=== PATIENT | female | born 1960 | race Caucasian/White ===

== ENCOUNTER 2017-11-06 10:38 | Inpatient (IN) | payer MEDICARE ==
[~2017-11-06] VITALS: Ht 162.6 cm; Wt 59.0 kg
[2017-11-06] VITALS (8 sets, daily range): BP systolic 130–190; BP diastolic 70–114
[~2017-11-06 10:38] MED LIST: ASPIRIN325 MG PO; ASPIRIN81 MG PO; FLAGYL500 MG PO; LEVAQUIN500 MG PO; LEVOTHYROXINE; NUPRIN200 MG BC; PLAVIX75 MG PO; SYNTHROID100 MCG PO; TRICOR145 MG PO
[2017-11-06] MEDS ORDERED: ISOSORBIDE MONO20 MG PO (10:44)
[2017-11-06] MEDS ORDERED: PRAVACHOL20 MG PO (10:44)
[2017-11-06] MEDS ORDERED: GLUCOPHAGE1000 MG PO (10:45)
[2017-11-06] MEDS ORDERED: HYDROCODONE-APA1 TAB PO (10:47)
[2017-11-06] MEDS ORDERED: CYCLOBENZAPRINE10 MG PO (10:47)
[2017-11-06] MEDS ORDERED: AMITRIPTYLINE100 MG PO (10:47)
[2017-11-06 11:17] LABS: BASOPHILS 0.1 % (0-2); EOSINOPHILS 0.7 % (0-7); HEMATOCRIT 44.4 % (36.0-48.0); HEMOGLOBIN 15.3 g/dL (12-16); IMMATURE GRANULOCYTES 0.5 % (0-5); LYMPHOCYTES 30.1 % (15-50); MCH 31.1 pg (26.0-34.0); MCHC 34.5 g/dL (31.0-37.0); MCV 90.2 fL (80.0-100.0); MEAN PLATELET VOLUME 11.7 fL (7.4-10.4); MONOCYTES 5.8 % (2-11); NEUTROPHILS 62.8 % (40-80); PLATELET COUNT 232 10x3/uL (130-400); RBC 4.92 10x6/uL (4.00-5.40); RDW 13.5 % (11.5-14.5); WBC 10.3 10x3/uL (4.8-10.8)
[2017-11-06 11:34] LABS: ALBUMIN 4.4 g/dL (3.4-5.0); ALKALINE PHOSPHATASE 121 U/L (46-116); ALT (SGPT) 29 U/L (10-68); BILIRUBIN - TOTAL 0.45 mg/dL (0.2-1.3); CALC OSMOLALITY 282 mosm/kg (275-300); CALCIUM 10.1 mg/dL (8.5-10.1); CARBON DIOXIDE 26.4 mmol/L (21.0-32.0); CHLORIDE - SERUM 103 mmol/L (98-107); CREATININE - SERUM 0.7 mg/dL (0.6-1.3); POTASSIUM - SERUM 3.9 mmol/L (3.5-5.1); PROTEIN - SERUM 8.2 g/dL (6.4-8.2); SODIUM 141 mmol/L (136-145); UREA NITROGEN 11 mg/dL (7-18); eGFR NON AFRICAN AMERICAN > 90 mL/min (90-120)
[2017-11-06 11:43] LABS: CKMB 1.7 U/L (0.0-3.6); LIPASE 237 U/L (73-393); TROPONIN-I < 0.017 ng/mL (0.000-0.060)
[2017-11-06 11:46] LABS: GLUCOSE 156 mg/dL (74-106)
[2017-11-06 11:50] LABS: APPEARANCE HAZY (CLEAR); BILIRUBIN NEGATIVE (NEGATIVE); COLOR YELLOW (YELLOW); GLUCOSE NEGATIVE (NEGATIVE); KETONE NEGATIVE (NEGATIVE); NITRITE NEGATIVE (NEGATIVE); PROTEIN NEGATIVE (NEGATIVE); SPECIFIC GRAVITY 1.015 (1.005-1.020); UROBILINOGEN NORMAL (NORMAL)
[2017-11-07 04:13] LABS: BASOPHILS 0.1 % (0-2); HEMOGLOBIN 13.3 g/dL (12-16); IMMATURE GRANULOCYTES 0.6 % (0-5); LYMPHOCYTES 28.4 % (15-50); MCH 30.4 pg (26.0-34.0); MCHC 33.3 g/dL (31.0-37.0); MCV 91.5 fL (80.0-100.0); MEAN PLATELET VOLUME 11.3 fL (7.4-10.4); NEUTROPHILS 60.9 % (40-80); PLATELET COUNT 195 10x3/uL (130-400); RBC 4.37 10x6/uL (4.00-5.40); RDW 13.5 % (11.5-14.5)
[2017-11-07 04:27] VITALS: BP 110/68
[2017-11-07 04:31] LABS: WBC 6.7 10x3/uL (4.8-10.8)
[2017-11-07 04:35] LABS: ALBUMIN 3.4 g/dL (3.4-5.0); ALKALINE PHOSPHATASE 96 U/L (46-116); ALT (SGPT) 23 U/L (10-68); AMYLASE - SERUM 18 U/L (25-115); BILIRUBIN - TOTAL 0.42 mg/dL (0.2-1.3); CALC OSMOLALITY 280 mosm/kg (275-300); CALCIUM 9.1 mg/dL (8.5-10.1); CARBON DIOXIDE 29.7 mmol/L (21.0-32.0); CHLORIDE - SERUM 105 mmol/L (98-107); CHOLESTEROL, TOTAL 197 mg/dL (0-200); CREATININE - SERUM 0.7 mg/dL (0.6-1.3); GLUCOSE 156 mg/dL (74-106); HDL CHOLESTEROL 33 mg/dL (32-96); LDL CHOLESTEROL 97 mg/dL (0-100); LDL-HDL RATIO 2.9 ratio (1.5-3.5); LIPASE 133 U/L (73-393); POTASSIUM - SERUM 3.9 mmol/L (3.5-5.1); PROTEIN - SERUM 6.6 g/dL (6.4-8.2); SODIUM 140 mmol/L (136-145); TRIGLYCERIDE 335 mg/dL (30-200); UREA NITROGEN 10 mg/dL (7-18); eGFR NON AFRICAN AMERICAN > 90 mL/min (90-120)
[2017-11-07 04:38] LABS: INR 1.06 (0.85-1.17); PROTIME 13.2 SECONDS (11.6-15.0)
[2017-11-07 04:40] VITALS: BP 136/84; BMI 22.3
[2017-11-07 10:58] VITALS: Ht 162.6 cm; Wt 59.0 kg
[2017-11-07 21:06] VITALS: BP 119/68
[2017-11-08 04:22] LABS: BASOPHILS 0.2 % (0-2); EOSINOPHILS 1.1 % (0-7); HEMATOCRIT 37.8 % (36.0-48.0); HEMOGLOBIN 12.5 g/dL (12-16); IMMATURE GRANULOCYTES 0.5 % (0-5); LYMPHOCYTES 28.2 % (15-50); MCH 30.5 pg (26.0-34.0); MCHC 33.1 g/dL (31.0-37.0); MCV 92.2 fL (80.0-100.0); MEAN PLATELET VOLUME 10.9 fL (7.4-10.4); MONOCYTES 5.9 % (2-11); NEUTROPHILS 64.1 % (40-80); PLATELET COUNT 199 10x3/uL (130-400); RDW 13.2 % (11.5-14.5); WBC 6.3 10x3/uL (4.8-10.8)
[2017-11-08 04:40] LABS: ALBUMIN 3.2 g/dL (3.4-5.0); ALKALINE PHOSPHATASE 88 U/L (46-116); AMYLASE - SERUM 19 U/L (25-115); CALC OSMOLALITY 283 mosm/kg (275-300); CHLORIDE - SERUM 104 mmol/L (98-107); CREATININE - SERUM 0.7 mg/dL (0.6-1.3); GLUCOSE 162 mg/dL (74-106); LIPASE 128 U/L (73-393); PROTEIN - SERUM 6.2 g/dL (6.4-8.2); SODIUM 141 mmol/L (136-145); UREA NITROGEN 9 mg/dL (7-18); eGFR NON AFRICAN AMERICAN > 90 mL/min (90-120)
[2017-11-08 04:47] LABS: ALT (SGPT) 12 U/L (10-68)
[2017-11-08 04:56] VITALS: BP 124/64
[2017-11-08 09:00] VITALS: BP 126/79
[2017-11-08 11:45] VITALS: BP 134/70
[2017-11-08 15:46] VITALS: BP 147/86
[2017-11-08 20:00] VITALS: BP 164/87
[2017-11-09] VITALS: BP 149/84
[2017-11-09 04:00] VITALS: BP 131/78
[2017-11-09 04:33] LABS: BASOPHILS 0.2 % (0-2); EOSINOPHILS 1.4 % (0-7); HEMATOCRIT 37.5 % (36.0-48.0); HEMOGLOBIN 12.3 g/dL (12-16); IMMATURE GRANULOCYTES 0.5 % (0-5); LYMPHOCYTES 41.3 % (15-50); MCH 29.9 pg (26.0-34.0); MCHC 32.8 g/dL (31.0-37.0); MCV 91.2 fL (80.0-100.0); MEAN PLATELET VOLUME 10.8 fL (7.4-10.4); MONOCYTES 9.3 % (2-11); NEUTROPHILS 47.3 % (40-80); PLATELET COUNT 190 10x3/uL (130-400); RBC 4.11 10x6/uL (4.00-5.40)
[2017-11-09 04:45] LABS: WBC 4.2 10x3/uL (4.8-10.8)
[2017-11-09 04:54] LABS: CALC OSMOLALITY 285 mosm/kg (275-300); CARBON DIOXIDE 31.5 mmol/L (21.0-32.0); CHLORIDE - SERUM 105 mmol/L (98-107); CREATININE - SERUM 0.8 mg/dL (0.6-1.3); GLUCOSE 186 mg/dL (74-106); POTASSIUM - SERUM 3.6 mmol/L (3.5-5.1); SODIUM 142 mmol/L (136-145); eGFR NON AFRICAN AMERICAN 79 mL/min (90-120)
[2017-11-09 05:02] LABS: UREA NITROGEN 6 mg/dL (7-18)
[2017-11-09 09:08] VITALS: BP 145/85
[2017-11-09 20:00] VITALS: BP 148/99
[2017-11-10] VITALS: BP 130/73
[2017-11-10 04:00] VITALS: BP 150/82
[2017-11-10 04:50] LABS: BASOPHILS 0.4 % (0-2); EOSINOPHILS 1.6 % (0-7); HEMATOCRIT 36.9 % (36.0-48.0); HEMOGLOBIN 12.2 g/dL (12-16); IMMATURE GRANULOCYTES 0.4 % (0-5); LYMPHOCYTES 32.6 % (15-50); MCH 29.8 pg (26.0-34.0); MCHC 33.1 g/dL (31.0-37.0); MEAN PLATELET VOLUME 10.9 fL (7.4-10.4); MONOCYTES 8.6 % (2-11); NEUTROPHILS 56.4 % (40-80); PLATELET COUNT 202 10x3/uL (130-400); WBC 5.1 10x3/uL (4.8-10.8)
[2017-11-10 05:39] LABS: ALBUMIN 3.1 g/dL (3.4-5.0); ALKALINE PHOSPHATASE 91 U/L (46-116); ALT (SGPT) 22 U/L (10-68); BILIRUBIN - TOTAL 0.34 mg/dL (0.2-1.3); CALC OSMOLALITY 282 mosm/kg (275-300); CALCIUM 9.3 mg/dL (8.5-10.1); CARBON DIOXIDE 27.8 mmol/L (21.0-32.0); CHLORIDE - SERUM 104 mmol/L (98-107); CREATININE - SERUM 0.8 mg/dL (0.6-1.3); POTASSIUM - SERUM 3.5 mmol/L (3.5-5.1); SODIUM 142 mmol/L (136-145); UREA NITROGEN 7 mg/dL (7-18); eGFR NON AFRICAN AMERICAN 79 mL/min (90-120)
[2017-11-10 05:43] LABS: GLUCOSE 132 mg/dL (74-106)
[2017-11-10 12:55] VITALS: BP 126/88
[2017-11-10] MEDS ORDERED: FLAGYL500 MG PO (18:55)
[2017-11-10] MEDS ORDERED: LEVAQUIN500 MG PO (18:55)
== END 2017-11-10 20:30 | disposition home or self-care (01) | DRG 392 ==
LOC: D.ER 10:38 → D.MS 17:16 → D.EDHOLD 17:16 → D.MS 17:58
PROVIDERS: Emergency Medicine; Family Medicine; Internal Medicine Gastroenterology
PROC: 0DD68ZX Extraction of Stomach, Via Natural or Artificial Opening Endoscopic, Diagnostic (ICD-10-PCS; 2017-11-09)
PROC: 0DD38ZX Extraction of Lower Esophagus, Via Natural or Artificial Opening Endoscopic, Diagnostic (ICD-10-PCS; 2017-11-09)
PROC: 0DD98ZX Extraction of Duodenum, Via Natural or Artificial Opening Endoscopic, Diagnostic (ICD-10-PCS; principal; 2017-11-09 14:30)
DX: K52.9 Noninfective gastroenteritis and colitis, unspecified (principal); K29.80 Duodenitis without bleeding; K20.9 Esophagitis, unspecified; K29.60 Other gastritis without bleeding; I10 Essential (primary) hypertension; J44.9 Chronic obstructive pulmonary disease, unspecified; M79.7 Fibromyalgia; F17.210 Nicotine dependence, cigarettes, uncomplicated; E78.5 Hyperlipidemia, unspecified; R68.81 Early satiety; K59.00 Constipation, unspecified; E11.9 Type 2 diabetes mellitus without complications; K75.81 Nonalcoholic steatohepatitis (NASH); E78.00 Pure hypercholesterolemia, unspecified

== ENCOUNTER 2017-12-13 15:31 | Inpatient (IN) | payer MEDICARE ==
[~2017-12-13] VITALS: Ht 162.6 cm; Wt 60.3 kg
--- NOTE | ~2017-12-13 | HEMODYNAMI ---
PATIENT:OCTAVIO WORLEY MEDICAL RECORD: [id number] : 64 LOCATION:[facility] D.2104 ADMISSION DATE: 12/13/17 Generatedon:12/14/201710:47 Patient name: OCTAVIO WORLEY Patient #: [id number] SSN: : 1960 Date of study: 12/14/2017 Page: Of Hemodynamic Procedure Report Patient Data Patient Demographics Procedure consent was obtained First Name: OCTAVIO Gender: Female Last Name: MEIR : 1960 [facility] Initial: SRAVANTHI Age: 57 year(s) Patient #: [id number] Race: Unknown Additional ID: [id number] Contact details [address]: [address] [place] [address] State: [place] City: [place] Zip code: [address] Past Medical History Allergies Allergen Reaction Date Comments Reported Penicillins 04/29/2014 Other allergy 04/29/2014 mycins Other allergy 04/29/2014 macrolide Admission Admission Data Admission Date: 12/13/2017 Admission Time: 15:31 Room #: D.2104 Procedure Procedure Types Cath Procedure Diagnostic Procedure [facility] w/Coronaries Sedation Charges Moderate Sedation up to 30 minutes PCI Procedure Coronary Stent Coronary Stent Initial Procedure Description Procedure Date Procedure Date: 12/14/2017 Procedure Start Time: 10:13 Procedure End Time: 10:43 Procedure Staff Name Function Nolan Babin MD Performing Physician Maria Del Rosario Ornelas RT Monitor Terra Hutchison RT Scrub Juan Cabrera RN Nurse Procedure Data Cath Procedure Fluoroscopy Diagnostic fluoroscopy Total fluoroscopy Time: 7.3 time: 7.3 min min Diagnostic fluoroscopy Total fluoroscopy dose: dose: 1036 mGy 1036 mGy Contrast Material Contrast Material Type Amount (ml) Isovue 300 95 Entry Location Entry Primary Successful Side Size Upsize Upsize Entry Closure Perdue ccessful Closure Location (Fr) 1 (Fr) 2 (Fr) Remarks Device Remarks Radial Right 6 Fr Mechanical artery Short Compression Estimated blood loss: 5 ml Diagnostic catheters Device Type Used For End Catheter Placement DIAGNOSTIC Thompsons 110cm 5 Multi-vessel Fr catheter ([id number]) Angiography Procedure Complications No complications Procedure Medications Medication Administration Route Dosage Oxygen etCO2 Nasal cannula 2 l/min Heparin Flush Bag added to field 2 bags (1000units/500ml NS) 0.9% NaCl I.V. 100 ml/hr Radial Cocktail added to field 1 syringe (Verapomil 2mg/Nitro 400mcg/Heparin 1500units) Fentanyl I.V. 50 mcg Versed I.V. 1 mg Radial Cocktail I.A. 1 syringe (Verapomil 2mg/Nitro 400mcg/Heparin 1500units) Fentanyl I.V. 50 mcg Versed I.V. 1 mg Fentanyl I.V. 50 mcg Heparin Bolus I.V. 6000 units Fentanyl I.V. 50 mcg Brilinta P.O. 180 mg Hemodynamics Rest Heart Rate: 89 (bpm) Pressure Samples Time Site Value (mmHg) Purpose Heart Use Rate(bpm) 10:16 LV 136/-4,12 Snapshot 93 10:17 AO 113/78(94) Pullback 99 10:17 LV 126/-6,7 Pullback 99 Gradients Valve Time Site 1 Site 2 Mean SEP/DFP Peak To Heart Use (mmHg) (sec/min) Peak Rate (mmHg) (bpm) Aortic 10:17 LV AO 0 3 13 99 126/-6,7 113/78(94) Calculations Valve P-P Mean Valve Index Valve Source Name Gradient Area Flow (cm2) Aortic 13 0 13 0 Snapshots Pre Cath Intra NCS Post Cath Vital Signs Time Heart Resp SPO2 etCO2 NIBP (mmHg) Rhythm Pain Sedation Rate (ipm) (%) (mmHg) Status Level (bpm) 10:00:42 85 17 99 38.3 143/95(118) NSR 0 (11) 10(A) , No pain 10:04:48 101 16 99 36 143/99(122) NSR 0 (11) 10(A) , No pain 10:08:54 89 17 97 24 141/91(123) NSR 0 (11) 10(A) , No pain 10:12:57 91 17 94 45.8 144/98(136) NSR 0 (11) 9(A) , No pain 10:18:07 95 16 93 42.1 128/87(112) NSR 0 (11) 9(A) , No pain 10:28:37 96 16 95 45.8 109/81(104) NSR 0 (11) 9(A) , No pain 10:32:35 96 17 95 45.8 122/79(113) NSR 0 (11) 9(A) , No pain 10:36:38 96 17 96 44.3 134/79(110) NSR 0 (11) 9(A) , No pain 10:40:42 97 17 94 44.3 122/89(116) NSR 0 (11) 9(A) , No pain 10:45:29 96 16 95 43.6 125/79(106) NSR 0 (11) 10(A) , No pain Medications Time Medication Route Dose Verified Delivered Reason Not es Effectiveness by by 10:02:53 Oxygen etCO2 2 l/min Nolan Juan Per physician Nasal Olaf Cabrera RN cannula 10:03:01 Heparin Flush added 2 bags Nolan Juan used for Bag to Olaf Cabrera RN procedure (1000units/500ml field NS) 10:03:09 0.9% NaCl I.V. 100 Nolan Juan Per physician ml/hr Olaf Cabrera RN 10:03:17 Radial Cocktail added 1 Nolan Juan used for (Verapomil to syringe Olaf Cabrera RN procedure 2mg/Nitro field 400mcg/Heparin 1500units) 10:08:11 Fentanyl I.V. 50 mcg Nolan Juan for sedation Olaf Cabrera RN 10:08:18 Versed I.V. 1 mg Nolan Juan for sedation Olaf Cabrera RN 10:15:44 Radial Cocktail I.A. 1 Nolan Nolan for (Verapomil syringe Olaf Babin MD vasodilation 2mg/Nitro 400mcg/Heparin 1500units) 10:15:49 Fentanyl I.V. 50 mcg Nolan Juan for sedation Olaf Cabrera RN 10:15:54 Versed I.V. 1 mg Nolan Juan for sedation Olaf Cabrera RN 10:18:02 Fentanyl I.V. 50 mcg Nolan Juan for sedation Olaf Cabrera RN 10:30:51 Heparin Bolus I.V. 6000 Nolan Juan for units Olaf Cabrera RN anticoagulation 10:37:12 Fentanyl I.V. 50 mcg Nolan Juan for sedation Olaf Cabrera RN 10:43:46 Brilinta P.O. 180 mg Nolan Martinez for Olaf Cabrera RN antiplatelet therapy Procedure Log Time Note 9:40:50 Juan Cabrera RN sent for patient. Start room use. 9:44:51 Time tracking: Regular hours (M-F 7:00 - 5:00) 9:44:56 Plan of Care:Hemodynamics will remain stable., Cardiac rhythm will remain stable., Comfort level will be maintained., Respiratory function will remain adequate., Patient/ family verbilizes understanding of procedure., Procedure tolerated without complication., Recovers from procedure without complications.. 9:52:05 Patient received from Med II to CCL 2 Alert and oriented. Tansferred to table in Supine position. 9:52:07 Warm blankets applied, and elisha hugger turned on for patient comfort. 9:52:07 Correct patient and procedure confirmed by team. 9:52:08 Signed procedure consent form obtained from patient. 9:52:09 ECG and BP/O2 sat monitors applied to patient. 9:59:39 Vital chart was started 10:02:53 Oxygen 2 l/min etCO2 Nasal cannula was administered by Juan Cabrera RN; Per physician; 10:03:01 Heparin Flush Bag (1000units/500ml NS) 2 bags added to field was administered by Juan Cabrera RN; used for procedure; 10:03:09 0.9% NaCl 100 ml/hr I.V. was administered by Juan Cabrera RN; Per physician; 10:03:17 Radial Cocktail (Verapomil 2mg/Nitro 400mcg/Heparin 1500units) 1 syringe added to field was administered by Juan Cabrera RN; used for procedure; 10:04:10 Baseline sample Acquired. 10:04:35 Rhythm: sinus tachycardia 10:04:37 Full Disclosure recording started 10:04:41 H&P Date Dictated: 12/14/2017 Within 30 days and on chart., H&P Addendum completed by physician on day of procedure. (MUST COMPLETE FOR ALL OUTPATIENTS). 10:04:43 Pre-procedure instructions explained to patient. 10:04:43 Pre-op teaching completed and patient verbalized understanding. 10:04:44 Family in waiting room. 10:04:48 Patient NPO since Midnight. 10:04:50 Is the patient allergic to Iodine/contrast media? No. 10:04:51 Was the patient premedicated? No 10:05:13 Is patient on blood thinner?No 10:07:29 Patient diabetic? No. 10:07:33 Previous problem with sedation/anesthesia? No ? 10:07:35 Snore? Yes 10:07:38 Sleep apnea? No 10:07:39 Deviated septum? No 10:07:40 Opens mouth fully? Yes 10:07:41 Sticks out tongue? Yes 10:07:43 Airway obstruction? No ? 10:07:48 Dentures? Yes in tight 10:07:52 Pre procedure: right dorsailis pedis pulse 2+ Normal; easily identifiable; not easily obliterated 10:07:53 Pre procedure: left dorsailis pedis pulse 2+ Normal; easily identifiable; not easily obliterated 10:07:55 Patient pain scale 0/10 ?. 10:08:04 IV patent on arrival in right forearm with 0.9% NaCl at [facility]. 10:08:07 Lab results completed and on chart. 10:08:11 Fentanyl 50 mcg I.V. was administered by Juan Cabrera RN; for sedation; 10:08:11 Right Radial & Right Groin area was prepped with chlora-prep and draped in sterile fashion 10:08:12 Alarms reviewed by R. N. 10:08:12 Sharps counted by scrub and verified by R.N. 10:08:13 Physician arrived 10:08:14 --------ALL STOP TIME OUT------ 10:08:14 Final Timeout: patient, procedure, and site verified with staff and physician. All members of the team are in agreement. 10:08:16 Right Radial & Right Groin site verified by team. 10:08:18 Versed 1 mg I.V. was administered by Juan Cabrera RN; for sedation; 10:08:18 Physical assessment completed. ASA score P 2 - A patient with mild systemic disease as per Nolan Babin MD. 10:08:22 Sedation plan: IV Moderate Sedation Medication:Versed, Fentanyl 10:08:25 Use device set Radial Dx or PCI 10:08:27 ACIST Syringe (08267) opened to sterile field. 10:08:27 Medline Cath Pack ([id number]) opened to sterile field. 10:08:27 Bag Decanter (2001S) opened to sterile field. 10:08:28 DIAGNOSTIC WIRE .035 260cm J wire (359050) opened to sterile field. 10:08:28 ACIST Hand Control (66324) opened to sterile field. 10:08:29 ACIST Manifold (16981) opened to sterile field. 10:08:29 Tegaderm 4 x 4 (1626W) opened to sterile field. 10:08:31 SHEATH 6Fr Prelude Radial ([id number]) opened to sterile field. 10:09:02 Zero performed for pressure channel P1 10:09:06 Zero performed for pressure channel P1 10:09:38 Procedure started. 10:13:30 Local anesthetic to right radial artery with Lidocaine 2% by Nolan Babin MD.INITIAL ACCESS ONLY 10:13:40 A 6 Fr Short sheath was inserted into the Right Radial artery 10:15:44 Radial Cocktail (Verapomil 2mg/Nitro 400mcg/Heparin 1500units) 1 syringe I.A. was administered by Nolan Babin MD; for vasodilation; 10:15:47 A DIAGNOSTIC Thompsons 110cm 5 Fr catheter ([id number]) was advanced over the wire and used for Multi-vessel Angiography. 10:15:49 Fentanyl 50 mcg I.V. was administered by Juan Cabrera RN; for sedation; 10:15:54 Versed 1 mg I.V. was administered by Juan Cabrera RN; for sedation; 10:16:39 LV hemodynamics recorded. 10:16:40 LV gram done using ANDERSON 10:16:43 Injector settings: Ml/sec: 5, Volume: 15, 10:17:02 EF : 60 % 10:17:20 LCA angiography performed. 10:17:23 Injector settings: Ml/sec: 3, Volume: 6, 10:18:02 Fentanyl 50 mcg I.V. was administered by Juan Cabrera RN; for sedation; 10:20:09 RCA angiography performed. 10:20:12 Injector settings: Ml/sec: 3, Volume: 6, 10:26:43 Catheter removed. 10:26:44 Proceeding to intervention. 10:27:19 BMW 300cm [place] 2 J wire ([id number]) opened to sterile field. 10:27:20 INFLATOR Merit BasjohnCompak (KW8790) opened to sterile field. 10:27:44 TUBING High Pressure Extension Tubing (Babin) ([id number]) opened to sterile field. 10:28:23 GUIDE 6FR AR 1.0 catheter ([id number]) opened to sterile field. 10:29:05 6 Fr ar 1 guide catheter was inserted over the wire 10:29:58 bmw wire advanced. 10:30:51 Heparin Bolus 6000 units I.V. was administered by Juan Cabrera RN; for anticoagulation; 10:32:14 Wire advanced across lesion. 10:35:34 Place stent Inflation Number: 1 A DARVIN OTW 3.5 x 18 stent ([id number]) was prepped and advanced across the Mid RCA. The stent was deployed at 10 TYSON for 0:10 (min:sec). 10:35:46 Stent catheter was removed intact over wire. 10:37:12 Fentanyl 50 mcg I.V. was administered by Juan Cabrera RN; for sedation; 10:39:12 Place stent Inflation Number: 2 A DARVIN OTW 3.5 x 30 stent ([id number]) was prepped and advanced across the Mid RCA. The stent was deployed at 12 TYSON for 0:10 (min:sec). 10:41:04 Stent catheter was removed intact over wire. 10:41:05 Wire removed. 10:41:05 Guide catheter removed. 10:41:10 TR BAND Standard ([id number]) opened to sterile field. 10:41:20 Sheath removed intact; hemostasis achieved with Mechanical Compression to the Right Radial artery. 10:41:22 Procedure ended.(Physican Out) 10:42:23 Fluoroscopy time 07.30 minutes. 10:42:28 Flurop Dose total: 1036 10:42:28 Fluoroscopy dose: 1036 mGy 10:42:57 Contrast amount:Isovue 300 95ml. 10:42:59 Sharps counted by scrub and verified by R.N. 10:43:02 TR band inflated with 12cc of air. 10:43:03 Insertion/operative site no bleeding no hematoma. 10:43:07 Post right radial artery:stable 10:43:09 Post Procedure Pulses reassessed and unchanged 10:43:13 Post procedure rhythm: unchanged. 10:43:16 Estimated blood loss: 5 ml 10:43:26 Post procedure instruction explained to patient.Patient verbalizes understanding. 10:43:27 Patient needs reinforcement of post procedure teaching. 10:43:40 Procedure type changed to Cath procedure, Diagnostic procedure, LHC, LHC w/Coronaries, Sedation Charges, Moderate Sedation up to 30 minutes, PCI procedure, Coronary Stent, Coronary Stent Initial 10:43:42 Procedure and supply charges have been captured, reviewed, submitted and are correct. 10:43:46 Brilinta 180 mg P.O. was administered by Juan Cabrera RN; for antiplatelet therapy; 10:43:46 Procedure Complication : No complications 10:43:48 Vital chart was stopped 10:43:48 See physician's report for complete and final results. 10:43:54 Report given to Med II. 10:43:57 Patient transfered to Med II with Stretcher. 10:43:59 Procedure ended. 10:43:59 Full Disclosure recording stopped 10:44:08 ACC-PCI Only Patient was given prescriptions, or instructed by Nolan Babin MD to start/continue the following medications upon discharge: Plavix 10:44:10 End room use (Document Last) Intervention Summary Intervention Notes Time ActionType Lesion and Equipment Action# Pressure Duration Attributes Used 10:35:34 Place stent Mid RCA DARVIN OTW 3.5 1 10 00:10 x 18 stent ([id number]) 10:39:12 Place stent Mid RCA DARVIN OTW 3.5 2 12 00:10 x 30 stent ([id number]) Device Usage Item Name Manufacture Quantity Catalog Number Hospital Part Current Minimal Lot# / Charge Number Stock Stock Serial# Code ACIST Syringe Acist 1 74277 623291 850990 285138 20 (56244) Medical Systems Inc Medline Cath Cardinal 1 [id number] 861054 40347 722969 5 Pack Health ([id number]) Bag Decanter Microtek 1 912031 92897 833408 5 () Medical Inc. DIAGNOSTIC WIRE St [place] 1 594597 129856 329920 163083 30 .035 260cm J wire (547596) ACIST Hand Acist 1 19863 422845 900737 981764 5 Control (38393) Medical Systems Inc ACIST Manifold Acist 1 90732 194387 981854 234103 5 (56348) Medical Systems Inc Tegaderm 4 x 4 3M 1 1626W 061913 436595 038420 5 (1626W) SHEATH 6Fr Merit 1 [id number] 146378 158746 986030 5 Prelude Radial Medical ([id number]) DIAGNOSTIC Terumo 1 40-7517 529562 929062 774649 5 Thompsons 110cm 5 Fr catheter (558428) BMW 300cm Ferrer 1 [id number] 170450 563376 103053 5 [place] 2 J Vascular wire ([id number]) INFLATOR Merit Merit 1 AS4431 404865 028010 886242 15 Tune Medical ([id number]) TUBING High Merit 1 [id number] 166007 47346 909126 10 Pressure Medical Extension Tubing (Babin) ([id number]) GUIDE 6FR AR Medtronic 1 [id number] 211087 88799 584644 1 1.0 catheter ([id number]) DARVIN OTW 3.5 x Medtronic 1 [id number] 408112 6302617 901009 5 [id number] 18 stent ([id number]) DARVIN OTW 3.5 x Medtronic 1 [id number] 891288 8096740 012592 5 [id number] 30 stent ([id number]) TR BAND Terumo 1 [id number] 518203 024015 538213 40 Standard ([id number]) Signature Audit Bath Stage Time Signature Unsigned Intra-Procedure 12/14/2017 Maria Del Rosario Ornelas 10:47:30 AM RT(R) Signatures Monitor : Maria Del Rosario Ornelas RT Signature : Date : Time : [facility] [address] [place] [address]
[~2017-12-13 15:31] MED LIST changes: +AMITRIPTYLINE100 MG PO; +CYCLOBENZAPRINE10 MG PO; +GLUCOPHAGE1000 MG PO; +HYDROCODONE-APA1 TAB PO; +ISOSORBIDE MONO20 MG PO; +PRAVACHOL20 MG PO
[2017-12-13 16:51] LABS: BASOPHILS 0.1 % (0-2); EOSINOPHILS 1.2 % (0-7); HEMATOCRIT 38.1 % (36.0-48.0); HEMOGLOBIN 12.9 g/dL (12-16); IMMATURE GRANULOCYTES 0.4 % (0-5); LYMPHOCYTES 38.5 % (15-50); MCH 30.6 pg (26.0-34.0); MCHC 33.9 g/dL (31.0-37.0); MCV 90.5 fL (80.0-100.0); MEAN PLATELET VOLUME 10.7 fL (7.4-10.4); MONOCYTES 7.5 % (2-11); NEUTROPHILS 52.3 % (40-80); PLATELET COUNT 187 10x3/uL (130-400); RBC 4.21 10x6/uL (4.00-5.40); RDW 13.6 % (11.5-14.5); WBC 7.2 10x3/uL (4.8-10.8)
[2017-12-13 17:15] LABS: ALBUMIN 3.6 g/dL (3.4-5.0); ALKALINE PHOSPHATASE 87 U/L (46-116); ALT (SGPT) 31 U/L (10-68); BILIRUBIN - TOTAL 0.35 mg/dL (0.2-1.3); CALC OSMOLALITY 282 mosm/kg (275-300); CALCIUM 9.6 mg/dL (8.5-10.1); CARBON DIOXIDE 26.8 mmol/L (21.0-32.0); CHLORIDE - SERUM 105 mmol/L (98-107); CREATININE - SERUM 0.7 mg/dL (0.6-1.3); GLUCOSE 156 mg/dL (74-106); POTASSIUM - SERUM 3.7 mmol/L (3.5-5.1); PROTEIN - SERUM 6.5 g/dL (6.4-8.2); SODIUM 141 mmol/L (136-145); UREA NITROGEN 9 mg/dL (7-18); eGFR NON AFRICAN AMERICAN > 90 mL/min (90-120)
[2017-12-13 17:26] LABS: AMYLASE - SERUM 19 U/L (25-115); CKMB 1.4 U/L (0.0-3.6); CREATINE KINASE 54 UL (21-215); LIPASE 111 U/L (73-393)
[2017-12-13 17:28] LABS: TROPONIN-I < 0.017 ng/mL (0.000-0.060)
[2017-12-13] MEDS ORDERED: BUSPAR10 MG PO (19:44)
[2017-12-13] MEDS ORDERED: PRINIVIL20 MG PO (19:44)
[2017-12-13] MEDS ORDERED: GLUCOTROL 5 MG T5 MG PO (19:45)
[2017-12-13] MEDS ORDERED: IMITREX100 MG PO (19:46)
[2017-12-13] MEDS ORDERED: GLUCOPHAGE500 MG PO (19:47)
[2017-12-13 21:18] VITALS: BP 135/68
[2017-12-13 22:39] LABS: CKMB 1.1 U/L (0.0-3.6); CREATINE KINASE 45 UL (21-215)
[2017-12-13 22:42] LABS: TROPONIN-I < 0.017 ng/mL (0.000-0.060)
[2017-12-14] VITALS: BP 161/98
[2017-12-14 02:30] VITALS: BP 135/68; BMI 22.9
[2017-12-14 04:00] VITALS: BP 150/97
[2017-12-14 04:32] LABS: HEMATOCRIT 38.4 % (36.0-48.0); MCH 30.5 pg (26.0-34.0); MCHC 33.9 g/dL (31.0-37.0); MCV 90.1 fL (80.0-100.0); MEAN PLATELET VOLUME 10.8 fL (7.4-10.4); PLATELET COUNT 175 10x3/uL (130-400); RBC 4.26 10x6/uL (4.00-5.40); RDW 13.6 % (11.5-14.5)
[2017-12-14 04:43] LABS: WBC 5.2 10x3/uL (4.8-10.8)
[2017-12-14 05:08] LABS: ALBUMIN 3.3 g/dL (3.4-5.0); ALKALINE PHOSPHATASE 91 U/L (46-116); ALT (SGPT) 28 U/L (10-68); BILIRUBIN - TOTAL 0.42 mg/dL (0.2-1.3); CALC OSMOLALITY 283 mosm/kg (275-300); CALCIUM 9.8 mg/dL (8.5-10.1); CARBON DIOXIDE 28.5 mmol/L (21.0-32.0); CHLORIDE - SERUM 106 mmol/L (98-107); CKMB 1.2 U/L (0.0-3.6); CREATINE KINASE 41 UL (21-215); CREATININE - SERUM 0.6 mg/dL (0.6-1.3); GLUCOSE 131 mg/dL (74-106); POTASSIUM - SERUM 3.8 mmol/L (3.5-5.1); PROTEIN - SERUM 6.2 g/dL (6.4-8.2); SODIUM 142 mmol/L (136-145); TROPONIN-I < 0.017 ng/mL (0.000-0.060); UREA NITROGEN 11 mg/dL (7-18); eGFR NON AFRICAN AMERICAN > 90 mL/min (90-120)
[2017-12-14 05:21] LABS: EOSINOPHILS 4 % (0-7); LYMPHOCYTES 45 % (15-50); MONOCYTES 5 % (2-11); NEUTROPHILS 42 % (40-80); PLATELET ESTIMATE DECREASED
[2017-12-14 07:30] LABS: APPEARANCE CLEAR (CLEAR); BILIRUBIN NEGATIVE (NEGATIVE); COLOR STRAW (YELLOW); GLUCOSE NEGATIVE (NEGATIVE); KETONE NEGATIVE (NEGATIVE); NITRITE NEGATIVE (NEGATIVE); PROTEIN NEGATIVE (NEGATIVE); UROBILINOGEN NORMAL (NORMAL)
[2017-12-14 08:36] VITALS: BP 128/72
[2017-12-14 11:41] VITALS: BP 129/84
[2017-12-14 11:57] VITALS: Ht 162.6 cm; Wt 60.3 kg
[2017-12-14] MEDS ORDERED: BRILINTA90 MG PO (14:18)
[2017-12-14] MEDS ORDERED: SYNTHROID100 MCG PO (14:26)
[2017-12-14] MEDS ORDERED: ASPIRIN81 MG PO (14:26)
[2017-12-14 15:48] VITALS: BP 104/95
== END 2017-12-14 16:24 | disposition home or self-care (01) | DRG 247 ==
LOC: D.M2 15:31
PROVIDERS: Family Medicine; Internal Medicine Cardiovascular Disease
PROC: B2111ZZ Fluoroscopy of Multiple Coronary Arteries using Low Osmolar Contrast (ICD-10-PCS; 2017-12-14)
PROC: B2151ZZ Fluoroscopy of Left Heart using Low Osmolar Contrast (ICD-10-PCS; 2017-12-14)
PROC: 027035Z Dilation of Coronary Artery, One Artery with Two Drug-eluting Intraluminal Devices, Percutaneous Approach (ICD-10-PCS; principal; 2017-12-14 09:00)
PROC: 4A023N7 Measurement of Cardiac Sampling and Pressure, Left Heart, Percutaneous Approach (ICD-10-PCS; 2017-12-14 09:00)
DX: I25.110 Atherosclerotic heart disease of native coronary artery with unstable angina pectoris (principal); Q24.5 Malformation of coronary vessels; E11.9 Type 2 diabetes mellitus without complications; I10 Essential (primary) hypertension; Z72.0 Tobacco use; J44.9 Chronic obstructive pulmonary disease, unspecified

== ENCOUNTER 2019-01-30 16:51 | Inpatient (IN) | payer MEDICARE ==
[~2019-01-30] VITALS: Ht 162.6 cm; Wt 63.0 kg
[~2019-01-30 16:51] MED LIST changes: +BRILINTA90 MG PO; +BUSPAR10 MG PO; +GLUCOPHAGE500 MG PO; +GLUCOTROL 5 MG T5 MG PO; +IMITREX100 MG PO; +PRINIVIL20 MG PO
[2019-01-30 17:00] VITALS: BP 172/103
--- NOTE | 2019-01-30 17:00 | NUR ---
RECEIVED TO ROOM 2205 VIA WC FROM ER. A/O X3. C/O CHEST PAIN R/T COUGHING. NON PRODUCTIVE COUGH NOTED. SKIN IS INTACT WITHOUT REDNESS. IV SITED TO LEFT FOREARM AFTER ONE ATTEMPT WITH 20 G. SUPPER SERVED IN ROOM. DENIES NEEDS.
[2019-01-30] MEDS ORDERED: PLAVIX75 MG PO (17:12)
[2019-01-30] MEDS ORDERED: ALTACE10 MG PO (17:13)
--- NOTE | 2019-01-30 18:00 | NUR ---
ATE ABOUT HALF OF SUPPER TRAY WITHOUT NAUSEA OR EMESIS. DR. CHESTER HERE TO SEE PATIENT.
[2019-01-30 19:04] LABS: BASOPHILS 0.1 % (0-2); EOSINOPHILS 1.2 % (0-7); HEMATOCRIT 40.3 % (36.0-48.0); HEMOGLOBIN 13.8 g/dL (12-16); IMMATURE GRANULOCYTES 0.5 % (0-5); LYMPHOCYTES 19.7 % (15-50); MCH 31.7 pg (26.0-34.0); MCHC 34.2 g/dL (31.0-37.0); MCV 92.4 fL (80.0-100.0); MEAN PLATELET VOLUME 10.8 fL (7.4-10.4); MONOCYTES 8.3 % (2-11); NEUTROPHILS 70.2 % (40-80); PLATELET COUNT 173 10x3/uL (130-400); RBC 4.36 10x6/uL (4.00-5.40); WBC 7.6 10x3/uL (4.8-10.8)
[2019-01-30 19:14] LABS: CALC OSMOLALITY 286 mosm/kg (275-300); CALCIUM 9.7 mg/dL (8.5-10.1); CARBON DIOXIDE 28.4 mmol/L (21.0-32.0); CHLORIDE - SERUM 105 mmol/L (98-107); CREATININE - SERUM 0.5 mg/dL (0.6-1.3); GLUCOSE 147 mg/dL (74-106); POTASSIUM - SERUM 3.7 mmol/L (3.5-5.1); SODIUM 144 mmol/L (136-145); UREA NITROGEN 5 mg/dL (7-18); eGFR NON AFRICAN AMERICAN > 90 mL/min (90-120)
[2019-01-30 19:21] LABS: ALBUMIN 3.9 g/dL (3.4-5.0); ALKALINE PHOSPHATASE 130 U/L (46-116); ALT (SGPT) 43 U/L (10-68); BILIRUBIN - TOTAL 0.38 mg/dL (0.2-1.3)
[2019-01-30 20:00] VITALS: BP 165/98
--- NOTE | 2019-01-30 20:00 | NUR ---
ALERT RESTING IN BED C/O CHEST PAIN RELATED TO COUGHING SO HARD, NONPRODUCTIVE COUGH NOTED, SEE SHIFT ASSESSMENT, CALL LIGHT IN REACH
[2019-01-30 22:03] VITALS: BP 165/98
--- NOTE | 2019-01-30 22:30 | NUR ---
Martha BROWN ANP NOTIFIED CONCERNING ELEVATED BP AND HR, ORDERS RECIEVED
[2019-01-30 22:46] LABS: MONO NEGATIVE (NEGATIVE)
--- NOTE | 2019-01-30 22:55 | NUR ---
LABITOL 10MG GIVEN SLOW IV ORDERED,BP 165/95 HR 108,TOLERATED WELL
[2019-01-30 23:40] VITALS: BP 149/90
--- NOTE | 2019-01-30 23:40 | NUR ---
BP RECHECKED 149/90 HR95
[2019-01-31] VITALS: BP 128/91
[2019-01-31 04:00] VITALS: BP 154/99
[2019-01-31 04:48] LABS: BASOPHILS 0.1 % (0-2); EOSINOPHILS 0.1 % (0-7); HEMOGLOBIN 13.6 g/dL (12-16); IMMATURE GRANULOCYTES 0.5 % (0-5); LYMPHOCYTES 9.4 % (15-50); MCH 30.8 pg (26.0-34.0); MCHC 33.2 g/dL (31.0-37.0); MCV 92.8 fL (80.0-100.0); MEAN PLATELET VOLUME 11.1 fL (7.4-10.4); MONOCYTES 4.1 % (2-11); NEUTROPHILS 85.8 % (40-80); PLATELET COUNT 175 10x3/uL (130-400); RBC 4.42 10x6/uL (4.00-5.40); RDW 12.8 % (11.5-14.5); WBC 8.1 10x3/uL (4.8-10.8)
[2019-01-31 05:04] LABS: APTT 27.5 SECONDS (22.8-39.4); INR 1.02 (0.85-1.17); PROTIME 12.9 SECONDS (11.6-15.0)
[2019-01-31 05:23] LABS: D-DIMER-QUANTITATIVE 0.28 ug/mLFEU (0.20-0.54)
[2019-01-31 05:36] LABS: CALCIUM 9.8 mg/dL (8.5-10.1); CARBON DIOXIDE 23.1 mmol/L (21.0-32.0); CHLORIDE - SERUM 102 mmol/L (98-107); MAGNESIUM - SERUM 1.3 mg/dL (1.8-2.4); PHOSPHOROUS 3.9 mg/dL (2.5-4.9); POTASSIUM - SERUM 3.8 mmol/L (3.5-5.1); PRO BNP 1565 pg/mL (0-125); SODIUM 139 mmol/L (136-145); THYROID STIMULATING HORMONE 0.09 uIU/mL (0.36-3.74)
[2019-01-31 05:40] LABS: CALC OSMOLALITY 287 mosm/kg (275-300); CREATININE - SERUM 0.7 mg/dL (0.6-1.3); GLUCOSE 306 mg/dL (74-106); UREA NITROGEN 7 mg/dL (7-18); eGFR NON AFRICAN AMERICAN > 90 mL/min (90-120)
--- NOTE | 2019-01-31 08:20 | NUR ---
PATIENT IS ALERT/ORIENT. CALL LIGHT WITHIN REACH. VOICES NO NEEDS AT THIS THIS TIME. URINE COLLECED PER ORDER AND SENT TO LAB
[2019-01-31 08:53] LABS: APPEARANCE CLEAR (CLEAR); BACTERIA FEW /hpf (NEGATIVE); BILIRUBIN NEGATIVE (NEGATIVE); COLOR YELLOW (YELLOW); EPITHELIAL CELLS OCC /hpf (0-5); GLUCOSE 1000 mg/dL (NEGATIVE); KETONE MODERATE mg/dL (NEGATIVE); NITRITE NEGATIVE (NEGATIVE); PROTEIN TRACE mg/dL (NEGATIVE); RED CELLS - URINE OCC /hpf (0-5); SPECIFIC GRAVITY 1.015 (1.005-1.020); UROBILINOGEN NORMAL (NORMAL); WHITE CELLS - URINE NSEEN /hpf (NEGATIVE)
[2019-01-31 09:21] VITALS: BP 141/87
--- NOTE | 2019-01-31 10:53 | NUR ---
DR MA ROUNDED AND NOTED ON THIS PATIENT
[2019-01-31 12:16] VITALS: BP 139/82
[2019-01-31 13:26] VITALS: Ht 162.6 cm; Wt 63.0 kg
--- NOTE | 2019-01-31 15:02 | NUR ---
I have reviewed this patient and I concur with the Shift Assessment completed by the Licensed Practical Nurse today this shift.
[2019-01-31 17:09] VITALS: BP 138/80
[2019-01-31 21:36] VITALS: BP 131/76
[2019-02-01 01:03] VITALS: BP 134/80
--- NOTE | 2019-02-01 01:29 | NUR ---
I have reviewed this patient and I concur with the Shift Assessment completed by the Licensed Practical Nurse today this shift.
[2019-02-01 04:47] LABS: BASOPHILS 0.1 % (0-2); EOSINOPHILS 0 % (0-7); HEMATOCRIT 37.5 % (36.0-48.0); HEMOGLOBIN 12.4 g/dL (12-16); IMMATURE GRANULOCYTES 1.2 % (0-5); LYMPHOCYTES 11.7 % (15-50); MCHC 33.1 g/dL (31.0-37.0); MCV 93.8 fL (80.0-100.0); PLATELET COUNT 189 10x3/uL (130-400); RDW 12.9 % (11.5-14.5)
[2019-02-01 04:54] LABS: CALC OSMOLALITY 295 mosm/kg (275-300); CALCIUM 9.6 mg/dL (8.5-10.1); CARBON DIOXIDE 27.3 mmol/L (21.0-32.0); CHLORIDE - SERUM 107 mmol/L (98-107); CREATININE - SERUM 0.6 mg/dL (0.6-1.3); GLUCOSE 260 mg/dL (74-106); POTASSIUM - SERUM 3.6 mmol/L (3.5-5.1); SODIUM 144 mmol/L (136-145); eGFR NON AFRICAN AMERICAN > 90 mL/min (90-120)
[2019-02-01 05:06] LABS: MAGNESIUM - SERUM 1.7 mg/dL (1.8-2.4); PHOSPHOROUS 2.9 mg/dL (2.5-4.9); UREA NITROGEN 13 mg/dL (7-18)
[2019-02-01 05:09] LABS: WBC 10.8 10x3/uL (4.8-10.8)
[2019-02-01 05:16] VITALS: BP 112/54
[2019-02-01 08:27] VITALS: BP 127/73
[2019-02-01 10:11] LABS: IMMUNOGLOBULIN A 76 mg/dL (87-352); IMMUNOGLOBULIN G 572 mg/dL (700-1600)
--- NOTE | 2019-02-01 10:50 | MORECARE ---
CASE MANAGEMENT DISCHARGE SUMMARY PATIENT: OCTAVIO WORLEY UNIT: [id number] ADM DATE: 01/30/19 AGE: 58 : 64 SEX: F ROOM/BED: D.2200 AUTHOR: ROXY HENRY PHYSICIAN: REFERRING PHYSICIAN: RM SAUL DO DATE OF SERVICE: 02/01/19 Discharge Plan Patient Name: OCTAVIO WORLEY Facility: [facility]:[place] : 1960 Planned Disposition: Home or Self Care Anticipated Discharge Date: Discharge Date: Expected LOS: Initial Reviewer: [email or web address] Initial Review Date: 01/30/2019 Generated: 02/01/19 11:50 am Comments DCP- Discharge Planning Updated by [email or web address]: Nidia Kulkarni on 02/01/19 9:[address] Patient Name: OCTAVIO WORLEY Admission Status: Urgent Accout number: [id number] Admission Date: 01-30-2019 : 1960 Admission Diagnosis: Attending: RM SAUL Current LOS: 2 Anticipated DC Date: Planned Disposition: Home or Self Care Primary Insurance: MEDICARE A & B Discharge Planning Comments: CM met with patient to complete initial dc planning assessment. CM educated patient on the CM role and verbal consent given by patient to complete assessment. Patient lives at home where she is independent with her care. Her adult daughter lives with her and helps her if needed. At discharge patient plans to return home and feels this is a safe discharge. Patient plans to drive her self home at DC. CM discussed availability of home health, rehab services, and medical equipment. She does not use any DME. Patient denied known discharge needs at this time. CM will continue to follow and will assist as needed with dc plans/needs. Customer Success Associate: Nidia Kulkarni DCPIA - Discharge Planning Initial Assessment Updated by [email or web address]: Nidia Kulkarni on 02/01/19 10:48 am * Is the patient Alert and Oriented? Yes * How many steps to enter\exit or inside your home? * PCP KG * Pharmacy [facility] * Preadmission Environment Home with Family * ADLs Independent * Equipment None * List name and contact numbers for known caregivers / representatives who currently or will assist patient after discharge: PREET PERALES [phone] * Verbal permission to speak to the caregivers and representatives has been obtained from the patient. N/A * Community resources currently utilized None * Additional services required to return to the preadmission environment? No * Can the patient safely return to the preadmission environment? Yes * Has this patient been hospitalized within the prior 30 days at any hospital? No Patient Name: OCTAVIO WORLEY Page 20818 at 1050 All edits/amendments must be made on the electronic document DICTATION DATE: 02/01/19 105 SENIOR COMPLIANCE OFFICER: BHUPINDER 02/01/19 1050 RPT#: [id number] DC DATE: STATUS: ADM IN [facility] [address] [place] [address] END OF REPORT
--- NOTE | 2019-02-01 10:57 | MORECARE ---
CASE MANAGEMENT DISCHARGE SUMMARY PATIENT: OCTAVIO WORLEY UNIT: [id number] ADM DATE: 01/30/19 AGE: 58 : 64 SEX: F ROOM/BED: D.2205 AUTHOR: CARLDOC PHYSICIAN: REFERRING PHYSICIAN: RM SAUL DO DATE OF SERVICE: 02/01/19 Discharge Plan Patient Name: OCTAVIO WORLEY Facility: [facility]:[place] : 1960 Planned Disposition: Home or Self Care Anticipated Discharge Date: Discharge Date: Expected LOS: Initial Reviewer: [email or web address] Initial Review Date: 01/30/2019 Generated: 02/01/19 11:57 am Comments DCP- Discharge Planning Updated by [email or web address]: Nidia Kulkarni on 02/01/19 9:[address] Patient Name: OCTAVIO WORLEY Admission Status: Urgent Accout number: [id number] Admission Date: 01-30-2019 : 1960 Admission Diagnosis: Attending: RM SAUL Current LOS: 2 Anticipated DC Date: Planned Disposition: Home or Self Care Primary Insurance: MEDICARE A & B Discharge Planning Comments: CM met with patient to complete initial dc planning assessment. CM educated patient on the CM role and verbal consent given by patient to complete assessment. Patient lives at home where she is independent with her care. Her adult daughter lives with her and helps her if needed. At discharge patient plans to return home and feels this is a safe discharge. Patient plans to drive her self home at DC. CM discussed availability of home health, rehab services, and medical equipment. She does not use any DME. Patient denied known discharge needs at this time. CM will continue to follow and will assist as needed with dc plans/needs. Knot Cutter: Nidia Kulkarni DCPIA - Discharge Planning Initial Assessment Updated by [email or web address]: Nidia Kulkarni on 02/01/19 10:50 am * Is the patient Alert and Oriented? Yes * How many steps to enter\exit or inside your home? * PCP KG * Pharmacy [facility] * Preadmission Environment Home with Family * ADLs Independent * Equipment Glucometer * List name and contact numbers for known caregivers / representatives who currently or will assist patient after discharge: PREET PERALES [phone] * Verbal permission to speak to the caregivers and representatives has been obtained from the patient. N/A * Community resources currently utilized None * Additional services required to return to the preadmission environment? No * Can the patient safely return to the preadmission environment? Yes * Has this patient been hospitalized within the prior 30 days at any hospital? No Last DP export: 02/01/19 9:50 Patient Name: OCTAVIO WORLEY Page 20460 at 1057 All edits/amendments must be made on the electronic document DICTATION DATE: 02/01/191056 CASEWORKER PROTECTIVE SERVICES: BHUPINDER 02/01/191056 RPT#: [id number] DC DATE: STATUS: ADM IN [facility] [address] [place] [address] END OF REPORT
--- NOTE | 2019-02-01 12:29 | NUR ---
JAMIE MADE AWARE OF PT SUGAR OF 411 DURING HER ROUNDS, STATES THAT SHE WILL CHECK PTS SLIDING SCALE DOSE
[2019-02-01 12:47] VITALS: BP 159/70
[2019-02-01 16:08] LABS: EBV - EARLY ANTIGEN AB IGG <9.0 U/mL (0.0-8.9); EBV VIRAL CAPSID AB IGG 18.6 U/mL (0.0-17.9); EBV VIRAL CAPSID AB IGM <36.0 U/mL (0.0-35.9)
[2019-02-01 16:53] VITALS: BP 147/91
--- NOTE | 2019-02-01 20:06 | MORECARE ---
CASE MANAGEMENT DISCHARGE SUMMARY PATIENT: OCTAVIO WORLEY UNIT: [id number] ADM DATE: 01/30/19 AGE: 58 : 64 SEX: F ROOM/BED: D.2205 AUTHOR: ROXY HENRY PHYSICIAN: REFERRING PHYSICIAN: RM SAUL DO DATE OF SERVICE: 02/01/19 Discharge Plan Patient Name: OCTAVIO WORLEY Facility: [facility]:[place] : 1960 Planned Disposition: Home or Self Care Anticipated Discharge Date: Discharge Date: Expected LOS: Initial Reviewer: [email or web address] Initial Review Date: 01/30/2019 Generated: 02/01/19 9:05 pm Comments DCP- Discharge Planning Updated by [email or web address]: Abril Kim on 02/01/19 7:[address] CM contacted patient in regards to UD equipment at home. Patient denies having a nebulizer at home. Patient's Pharmacy is [facility]. CM will contact a DME as soon as an order for an Nebulizer to obtained. Abril Kim RN DCP- Discharge Planning Updated by [email or web address]: Nidia Kulkarni on 02/01/19 9:[address] Patient Name: OCTAVIO WORLEY Admission Status: Urgent Accout number: [id number] Admission Date: 01-30-2019 : 1960 Admission Diagnosis: Attending: RM SAUL Current LOS: 2 Anticipated DC Date: Planned Disposition: Home or Self Care Primary Insurance: MEDICARE A & B Discharge Planning Comments: CM met with patient to complete initial dc planning assessment. CM educated patient on the CM role and verbal consent given by patient to complete assessment. Patient lives at home where she is independent with her care. Her adult daughter lives with her and helps her if needed. At discharge patient plans to return home and feels this is a safe discharge. Patient plans to drive her self home at DC. CM discussed availability of home health, rehab services, and medical equipment. She does not use any DME. Patient denied known discharge needs at this time. CM will continue to follow and will assist as needed with dc plans/needs. Tar Chaser: Nidia Kulkarni DCPIA - Discharge Planning Initial Assessment Updated by [email or web address]: Nidia Kulkarni on 02/01/19 10:50 am * Is the patient Alert and Oriented? Yes * How many steps to enter\exit or inside your home? * PCP KG * Pharmacy [facility] * Preadmission Environment Home with Family * ADLs Independent * Equipment Glucometer * List name and contact numbers for known caregivers / representatives who currently or will assist patient after discharge: PREET PERALES [phone] * Verbal permission to speak to the caregivers and representatives has been obtained from the patient. N/A * Community resources currently utilized None * Additional services required to return to the preadmission environment? No * Can the patient safely return to the preadmission environment? Yes * Has this patient been hospitalized within the prior 30 days at any hospital? No Last DP export: 02/01/19 9:57 Patient Name: OCTAVIO WORLEY Page [id number] at 2006 All edits/amendments must be made on the electronic document DICTATION DATE: 02/01/192004 HEARING HEALTH TECHNICIAN: BHUPINDER 02/01/192004 RPT#: [id number] DC DATE: STATUS: ADM IN [facility] [address] [place] [address] END OF REPORT
[2019-02-01 21:16] VITALS: BP 148/91
[2019-02-02 01:13] VITALS: BP 150/93
--- NOTE | 2019-02-02 02:51 | NUR ---
I have reviewed this patient and I concur with the Shift Assessment completed by the Licensed Practical Nurse today this shift.
[2019-02-02 04:37] VITALS: BP 128/74
[2019-02-02 07:11] LABS: BASOPHILS 0.1 % (0-2); EOSINOPHILS 0.1 % (0-7); HEMATOCRIT 38.8 % (36.0-48.0); HEMOGLOBIN 12.7 g/dL (12-16); IMMATURE GRANULOCYTES 1.6 % (0-5); MCHC 32.7 g/dL (31.0-37.0); MCV 94.6 fL (80.0-100.0); MEAN PLATELET VOLUME 10.7 fL (7.4-10.4); MONOCYTES 6.4 % (2-11); NEUTROPHILS 56.8 % (40-80); PLATELET COUNT 173 10x3/uL (130-400); RDW 13.3 % (11.5-14.5); WBC 9.3 10x3/uL (4.8-10.8)
[2019-02-02 07:22] LABS: CALC OSMOLALITY 292 mosm/kg (275-300); CALCIUM 9.2 mg/dL (8.5-10.1); CARBON DIOXIDE 28.9 mmol/L (21.0-32.0); CHLORIDE - SERUM 109 mmol/L (98-107); CREATININE - SERUM 0.6 mg/dL (0.6-1.3); MAGNESIUM - SERUM 1.8 mg/dL (1.8-2.4); PHOSPHOROUS 2.6 mg/dL (2.5-4.9); POTASSIUM - SERUM 3.1 mmol/L (3.5-5.1); SODIUM 145 mmol/L (136-145); UREA NITROGEN 12 mg/dL (7-18); eGFR NON AFRICAN AMERICAN > 90 mL/min (90-120)
[2019-02-02 07:23] LABS: GLUCOSE 174 mg/dL (74-106)
--- NOTE | 2019-02-02 08:53 | NUR ---
RESTING IN BED, NO DISTRESS NOTED, HAPPY WITH THIS AM SUGAR OF 103, CONT TO MONITOR RESP
[2019-02-02 08:55] VITALS: BP 157/88
[2019-02-02] MEDS ORDERED: NICODERM C1 PATCH .1 TRANSDERM (12:44)
[2019-02-02] MEDS ORDERED: LEVOFLOXACIN500 MG PO (12:44)
[2019-02-02] MEDS ORDERED: FLUTICASONE PRO16 GM NASAL (12:45)
[2019-02-02] MEDS ORDERED: MUCINEX DM ER1 EAC1 PO (12:45)
[2019-02-02] MEDS ORDERED: SINGULAIR10 MG PO (12:45)
[2019-02-02] MEDS ORDERED: FLORAJEN3 CAPS460 MG PO (12:45)
[2019-02-02] MEDS ORDERED: ALBUTEROL2.5 MG/3 M INH (12:46)
[2019-02-02] MEDS ORDERED: Tessalon Perle PO (12:46)
[2019-02-02] MEDS ORDERED: PREDNISONE10 MG PO (12:46)
--- NOTE | 2019-02-02 14:53 | NUR ---
[facility] DID NOT E SCRIBE. CALLED TO [facility], SPOKE TO KANDACE, PHARMACIST.
[2019-02-02] MEDS ORDERED: FLOVENT HFA 22012 GM INH (14:56)
[2019-02-02] MEDS ORDERED: PROTONIX40 MG PO (14:56)
[2019-02-02] MEDS ORDERED: IPRAT-ALBUT 0.5-3 ML UPD (14:56)
[2019-02-02 16:08] VITALS: BP 154/94
--- NOTE | 2019-02-02 16:45 | NUR ---
DC IV,TIP INTACT, REVIEWED RX AND DC ORDERES, VOICED NO CONCERNS, TAKEN TO VEHICLE PER W/C
--- NOTE | 2019-02-02 18:24 | MORECARE ---
CASE MANAGEMENT DISCHARGE SUMMARY PATIENT: OCTAVIO WORLEY UNIT: [id number] ADM DATE: 01/30/19 AGE: 58 : 64 SEX: F ROOM/BED: D.2205 AUTHOR: CARL,DOC PHYSICIAN: REFERRING PHYSICIAN: RM SAUL DO DATE OF SERVICE: 02/02/19 Discharge Plan Patient Name: OCTAVIO WORLEY Facility: [facility]:[place] : 1960 Planned Disposition: Home or Self Care Anticipated Discharge Date: Discharge Date: 02/02/2019 Expected LOS: Initial Reviewer: [email or web address] Initial Review Date: 01/30/2019 Generated: 02/02/19 7:24 pm Comments DCP- Discharge Planning Updated by [email or web address]: Harika Ríos on 02/02/19 5:[address] LATE ENTRY 1445 PATIENT FOR DISCHARGE TODAY. SHE IS AWARE THAT THE DOCTOR HAS ORDERED A NEBULIZER. CM PROVIDED A LIST OD DME PROVIDERS. SHE HAD NO PREFERRED PROVIDER. SHE SELECTED [facility]. PATIENT CHOICE FORM OBTAINED. TC TO [facility]. THE MD ORDER, FACE SHEET, PULMONARY AND DISCHARGE NOTE PROVIDED UPON ARRIVAL OF THE UNIT. NEBULIZER DELIVERED TO THE PATIENT'S ROOM. DCP- Discharge Planning Updated by [email or web address]: Abril Kim on 02/01/19 7:[address] CM contacted patient in regards to UD equipment at home. Patient denies having a nebulizer at home. Patient's Pharmacy is [facility]. CM will contact a DME as soon as an order for an Nebulizer to obtained. Abril Kim RN DCP- Discharge Planning Updated by [id number]: Nidia Kulkarni on 02/01/19 9:[address] Patient Name: OCTAVIO WORLEY Admission Status: Urgent Accout number: [id number] Admission Date: 01-30-2019 : 1960 Admission Diagnosis: Attending: RM SAUL Current LOS: 2 Anticipated DC Date: Planned Disposition: Home or Self Care Primary Insurance: MEDICARE A & B Discharge Planning Comments: CM met with patient to complete initial dc planning assessment. CM educated patient on the CM role and verbal consent given by patient to complete assessment. Patient lives at home where she is independent with her care. Her adult daughter lives with her and helps her if needed. At discharge patient plans to return home and feels this is a safe discharge. Patient plans to drive her self home at DC. CM discussed availability of home health, rehab services, and medical equipment. She does not use any DME. Patient denied known discharge needs at this time. CM will continue to follow and will assist as needed with dc plans/needs. Deckhand Fishing Vessel: Nidia Kulkarni DCPIA - Discharge Planning Initial Assessment Updated by [email or web address]: Nidia Kulkarni on 02/01/19 10:50 am * Is the patient Alert and Oriented? Yes * How many steps to enter\exit or inside your home? * [facility] * [facility] * Preadmission Environment Home with Family * ADLs Independent * Equipment Glucometer * List name and contact numbers for known caregivers / representatives who currently or will assist patient after discharge: PREET PERALES [phone] * Verbal permission to speak to the caregivers and representatives has been obtained from the patient. N/A * Community resources currently utilized None * Additional services required to return to the preadmission environment? No * Can the patient safely return to the preadmission environment? Yes * Has this patient been hospitalized within the prior 30 days at any hospital? No Coverage Notice Reviewer: [email or web address] Galdino Ríos Notice Issued Date-Time: 02/02/2019 18:21 Notice Type: Patient Choice Letter Notice Delivered To: Patient Relationship to Patient: Self Ends Breakage Clerk Name: Delivery Method: HAND - Hand Delivered Imani Days: Prior Verbal Notification: Recipient Understood Notice: Recipient Signature: Yes Med Rec Note Co-signed by Attending: Coverage Notice Comment: PATIENT CHOICE OBTAINED FOR DME PROVIDER Last DP export: 02/01/19 7:06 Patient Name: OCTAVIO WORLEY Page 95698 at 1824 All edits/amendments must be made on the electronic document DICTATION DATE: 02/02/191823 GRINDING AND SPRAYING SUPERVISOR: BHUPINDER 02/02/191823 RPT#: [id number] DC DATE:02/02/19 STATUS: DIS IN [facility] [address] [place] [address] END OF REPORT
[2019-02-02 21:06] LABS: IGG SUBCLASS 1 325 mg/dL (248-810); IGG SUBCLASS 2 113 mg/dL (130-555); IGG SUBCLASS 3 49 mg/dL (15-102); IGG SUBCLASS 4 25 mg/dL (2-96); IGGS - IGG SERUM 567 mg/dL (700-1600)
[2019-02-03 12:08] LABS: IMMUNOGLOBULIN E 78 IU/mL (6-495)
--- NOTE | 2019-02-04 14:16 | MORECARE ---
CASE MANAGEMENT DISCHARGE SUMMARY PATIENT: OCTAVIO WORLEY UNIT: [id number] ADM DATE: 01/30/19 AGE: 58 : 64 SEX: F ROOM/BED: D.2205 AUTHOR: CARL,DOC PHYSICIAN: REFERRING PHYSICIAN: RM SAUL DO DATE OF SERVICE: 02/04/19 Discharge Plan Patient Name: OCTAVIO WORLEY Facility: [facility]:[place] : 1960 Planned Disposition: Home or Self Care Anticipated Discharge Date: Discharge Date: 02/02/2019 Expected LOS: Initial Reviewer: [email or web address] Initial Review Date: 01/30/2019 Generated: 02/04/19 3:16 pm Comments DCP- Discharge Planning Updated by [email or web address]: Harika Ríos on 02/02/19 5:[address] LATE ENTRY 1445 PATIENT FOR DISCHARGE TODAY. SHE IS AWARE THAT THE DOCTOR HAS ORDERED A NEBULIZER. CM PROVIDED A LIST OD DME PROVIDERS. SHE HAD NO PREFERRED PROVIDER. SHE SELECTED [facility]. PATIENT CHOICE FORM OBTAINED. TC TO [facility]. THE MD ORDER, FACE SHEET, PULMONARY AND DISCHARGE NOTE PROVIDED UPON ARRIVAL OF THE UNIT. NEBULIZER DELIVERED TO THE PATIENT'S ROOM. DCP- Discharge Planning Updated by [id number]: Abril Kim on 02/01/19 7:[address] CM contacted patient in regards to UD equipment at home. Patient denies having a nebulizer at home. Patient's Pharmacy is [facility]. CM will contact a DME as soon as an order for an Nebulizer to obtained. Abril Kim RN DCP- Discharge Planning Updated by [email or web address]: Nidia Kulkarni on 02/01/19 9:[address] Patient Name: OCTAVIO WORLEY Admission Status: Urgent Accout number: [id number] Admission Date: 01-30-2019 : 1960 Admission Diagnosis: Attending: RM SAUL Current LOS: 2 Anticipated DC Date: Planned Disposition: Home or Self Care Primary Insurance: MEDICARE A & B Discharge Planning Comments: CM met with patient to complete initial dc planning assessment. CM educated patient on the CM role and verbal consent given by patient to complete assessment. Patient lives at home where she is independent with her care. Her adult daughter lives with her and helps her if needed. At discharge patient plans to return home and feels this is a safe discharge. Patient plans to drive her self home at DC. CM discussed availability of home health, rehab services, and medical equipment. She does not use any DME. Patient denied known discharge needs at this time. CM will continue to follow and will assist as needed with dc plans/needs. Donor Services Manager: Nidia Kulkarni DCPIA - Discharge Planning Initial Assessment Updated by [id number]: Nidia Kulkarni on 02/01/19 10:50 am * Is the patient Alert and Oriented? Yes * How many steps to enter\exit or inside your home? * [facility] * [facility] * Preadmission Environment Home with Family * ADLs Independent * Equipment Glucometer * List name and contact numbers for known caregivers / representatives who currently or will assist patient after discharge: PREET PERALES [phone] * Verbal permission to speak to the caregivers and representatives has been obtained from the patient. N/A * Community resources currently utilized None * Additional services required to return to the preadmission environment? No * Can the patient safely return to the preadmission environment? Yes * Has this patient been hospitalized within the prior 30 days at any hospital? No Coverage Notice Reviewer: [id number] Galdino Ríos Notice Issued Date-Time: 02/02/2019 14:55 Notice Type: Patient Choice Letter Notice Delivered To: Patient Relationship to Patient: Self Magician Helper Name: Delivery Method: HAND - Hand Delivered Imani Days: Prior Verbal Notification: Recipient Understood Notice: Recipient Signature: Yes Med Rec Note Co-signed by Attending: Coverage Notice Comment: PATIENT CHOICE OBTAINED FOR DME PROVIDER Last DP export: 02/02/19 5:24 Patient Name: OCTAVIO WORLEY Page [id number] at 1416 All edits/amendments must be made on the electronic document DICTATION DATE: 02/04/191415 ROBOTICS TESTING TECHNICIAN: BHUPINDER 02/04/191415 RPT#: [id number] DC DATE:02/02/19 STATUS: DIS IN [facility] [address] [place] [address] END OF REPORT
[2019-02-05 03:07] LABS: B PARAPERTUSSIS DNA Negative (Negative); B PERTUSSIS DNA Negative (Negative)
== END 2019-02-02 16:35 | disposition home or self-care (01) | DRG 190 ==
LOC: D.MS 16:51
PROVIDERS: Internal Medicine Nephrology; Internal Medicine Pulmonary Disease; ADMIT Family Medicine; ATTEND Family Medicine
DX: J44.0 Chronic obstructive pulmonary disease with (acute) lower respiratory infection (principal); J18.9 Pneumonia, unspecified organism; F17.203 Nicotine dependence unspecified, with withdrawal; J20.9 Acute bronchitis, unspecified; J44.1 Chronic obstructive pulmonary disease with (acute) exacerbation; I10 Essential (primary) hypertension; E78.5 Hyperlipidemia, unspecified; I25.10 Atherosclerotic heart disease of native coronary artery without angina pectoris; E11.9 Type 2 diabetes mellitus without complications; E03.9 Hypothyroidism, unspecified; M06.9 Rheumatoid arthritis, unspecified; M79.7 Fibromyalgia; K21.9 Gastro-esophageal reflux disease without esophagitis; G89.29 Other chronic pain; D64.9 Anemia, unspecified; F32.9 Major depressive disorder, single episode, unspecified; R07.1 Chest pain on breathing; Z87.01 Personal history of pneumonia (recurrent); Z87.09 Personal history of other diseases of the respiratory system; G47.00 Insomnia, unspecified

== ENCOUNTER 2019-09-30 15:09 | Inpatient (IN) | payer MEDICARE ==
[~2019-09-30] VITALS: Ht 162.6 cm; Wt 60.0 kg
[~2019-09-30 15:09] MED LIST changes: +ALBUTEROL2.5 MG/3 M INH; +ALTACE10 MG PO; +FLORAJEN3 CAPS460 MG PO; +FLOVENT HFA 22012 GM INH; +FLUTICASONE PRO16 GM NASAL; +IPRAT-ALBUT 0.5-3 ML UPD; +LEVOFLOXACIN500 MG PO; +MUCINEX DM ER1 EAC1 PO; +NICODERM C1 PATCH .1 TRANSDERM; +PREDNISONE10 MG PO; +PROTONIX40 MG PO; +SINGULAIR10 MG PO; +Tessalon Perle PO
[2019-09-30 16:21] LABS: HEMATOCRIT 47.3 % (36.0-48.0); HEMOGLOBIN 16.3 g/dL (12-16); LYMPHOCYTES 31.9 % (15-50); MCH 30.3 pg (26.0-34.0); MCHC 34.5 g/dL (31.0-37.0); MCV 87.9 fL (80.0-100.0); MEAN PLATELET VOLUME 11.4 fL (7.4-10.4); NEUTROPHILS 61.5 % (40-80); PLATELET COUNT 216 10x3/uL (130-400); RBC 5.38 10x6/uL (4.00-5.40); RDW 12.8 % (11.5-14.5); WBC 10.3 10x3/uL (4.8-10.8)
[2019-09-30 16:25] LABS: CALC OSMOLALITY 277 mosm/kg (275-300); CALCIUM 10.4 mg/dL (8.5-10.1); CARBON DIOXIDE 27.6 mmol/L (21.0-32.0); CHLORIDE - SERUM 99 mmol/L (98-107); CREATININE - SERUM 0.8 mg/dL (0.6-1.3); GLUCOSE 212 mg/dL (74-106); POTASSIUM - SERUM 4.2 mmol/L (3.5-5.1); SODIUM 135 mmol/L (136-145); UREA NITROGEN 18 mg/dL (7-18); eGFR NON AFRICAN AMERICAN 78 mL/min (90-120)
[2019-09-30 16:36] LABS: APTT 24.9 SECONDS (22.8-39.4); INR 0.9 (0.85-1.17); PROTIME 12.2 SECONDS (11.6-15.0)
[2019-09-30 16:38] LABS: ALBUMIN 4.1 g/dL (3.4-5.0); ALKALINE PHOSPHATASE 124 U/L (30-120); ALT (SGPT) 43 U/L (10-68); AMYLASE - SERUM 15 U/L (25-115); BILIRUBIN - TOTAL 0.68 mg/dL (0.2-1.3); CREATINE KINASE 51 UL (21-215); LIPASE 88 U/L (73-393); MAGNESIUM - SERUM 1.3 mg/dL (1.8-2.4); PRO BNP 17 pg/mL (0-125); PROTEIN - SERUM 7.4 g/dL (6.4-8.2)
[2019-09-30 16:39] LABS: TROPONIN-I < 0.017 ng/mL (0.000-0.060)
[2019-09-30 18:08] LABS: BILIRUBIN NEGATIVE (NEGATIVE); GLUCOSE 250 mg/dL (NEGATIVE); KETONE NEGATIVE (NEGATIVE); NITRITE NEGATIVE (NEGATIVE); UROBILINOGEN NORMAL (NORMAL)
--- NOTE | 2019-09-30 19:06 | NUR ---
PT RESTING IN BED. STATES PAIN IS SLIGHTLY BETTER. AWAITING BED. PT UPDATED ON STATUS.
--- NOTE | 2019-09-30 20:25 | NUR ---
LIONEL OVERTONY TO PATIENT.
--- NOTE | 2019-09-30 21:25 | NUR ---
REGULAR INSULIN 8U SQ PER SS GIVEN. NS BEGAN @ 125ML/HOUR.
--- NOTE | 2019-09-30 22:00 | NUR ---
PT ARRIVED FROM ER VIA WC AND TO BED LOW AND LOCKED AND CALL LIGHT PROVIDED PT STATED NO OTHER NEEDS AT THIS TIME
[2019-09-30] MEDS ORDERED: ATARAX 25 MG TA25 MG PO (22:16)
[2019-09-30] MEDS ORDERED: LIPITOR20 MG PO (22:17)
[2019-09-30] MEDS ORDERED: GLUCOPHAGE1000 MG PO (22:17)
[2019-09-30] MEDS ORDERED: NIASPAN500 MG PO (22:18)
[2019-09-30] MEDS ORDERED: SYNTHROID125 MCG PO (22:19)
[2019-09-30] MEDS ORDERED: AMITRIPTYLINE H50 MG PO (22:19)
[2019-09-30] MEDS ORDERED: GLUCOTROL 5 MG T5 MG PO (22:20)
[2019-10-01] VITALS (7 sets, daily range): BP systolic 89–158; BP diastolic 65–87; Ht 162.6 cm; Wt 60.0 kg
--- NOTE | 2019-10-01 04:30 | NUR ---
ADMISSION ASSESSMENT COMPLETED BY RN AT THIS TIME.
[2019-10-01 06:41] LABS: ALBUMIN 3.1 g/dL (3.4-5.0); ALKALINE PHOSPHATASE 90 U/L (30-120); ALT (SGPT) 33 U/L (10-68); CALCIUM 9.2 mg/dL (8.5-10.1); CARBON DIOXIDE 29.3 mmol/L (21.0-32.0); CHLORIDE - SERUM 106 mmol/L (98-107); CREATININE - SERUM 0.6 mg/dL (0.6-1.3); MAGNESIUM - SERUM 1.2 mg/dL (1.8-2.4); POTASSIUM - SERUM 3.7 mmol/L (3.5-5.1); SODIUM 141 mmol/L (136-145); TROPONIN-I < 0.017 ng/mL (0.000-0.060); eGFR NON AFRICAN AMERICAN > 90 mL/min (90-120)
[2019-10-01 07:00] LABS: CALC OSMOLALITY 283 mosm/kg (275-300); GLUCOSE 156 mg/dL (74-106); PROTEIN - SERUM 5.3 g/dL (6.4-8.2); UREA NITROGEN 13 mg/dL (7-18)
--- NOTE | 2019-10-01 07:30 | NUR ---
REPORT RECIEVED. PT LYING SEMI FOWLERS IN BED. RR EVEN AND UNLABORED ON RA. SHE HAS A R FA PIV INFUSING NS @ 125. BED LOCKED AND IN LOWEST POSITION, CALL LIGHT WITHIN REACH. WILL CTM
[2019-10-01 07:35] LABS: HEMATOCRIT 39.6 % (36.0-48.0); HEMOGLOBIN 13.8 g/dL (12-16); LYMPHOCYTES 44.6 % (15-50); MCH 30.9 pg (26.0-34.0); MCHC 34.8 g/dL (31.0-37.0); MCV 88.8 fL (80.0-100.0); MEAN PLATELET VOLUME 11.3 fL (7.4-10.4); NEUTROPHILS 46.3 % (40-80); RBC 4.46 10x6/uL (4.00-5.40); RDW 12.6 % (11.5-14.5)
[2019-10-01 07:38] LABS: PLATELET COUNT 162 10x3/uL (130-400); WBC 6.6 10x3/uL (4.8-10.8)
--- NOTE | 2019-10-01 19:06 | NUR ---
PT IS ALERT AND AWAKE COMPLAINT THAT HER PAIN IS NOT GOING AWAY BED IS LOW AND LOCKED AND CALL LIGHT IS IN REACH
--- NOTE | 2019-10-02 05:44 | NUR ---
I have reviewed this patient and I concur with the Shift Assessment completed by the Licensed Practical Nurse today this shift.
[2019-10-02 06:29] LABS: ALBUMIN 2.9 g/dL (3.4-5.0); ALKALINE PHOSPHATASE 85 U/L (30-120); ALT (SGPT) 29 U/L (10-68); BILIRUBIN - TOTAL 0.32 mg/dL (0.2-1.3); CALC OSMOLALITY 288 mosm/kg (275-300); CALCIUM 8.6 mg/dL (8.5-10.1); CARBON DIOXIDE 29.8 mmol/L (21.0-32.0); CHLORIDE - SERUM 109 mmol/L (98-107); CREATININE - SERUM 0.6 mg/dL (0.6-1.3); GLUCOSE 169 mg/dL (74-106); MAGNESIUM - SERUM 1.3 mg/dL (1.8-2.4); POTASSIUM - SERUM 3.7 mmol/L (3.5-5.1); SODIUM 144 mmol/L (136-145); eGFR NON AFRICAN AMERICAN > 90 mL/min (90-120)
[2019-10-02 06:54] LABS: UREA NITROGEN 7 mg/dL (7-18)
[2019-10-02 07:03] LABS: HEMATOCRIT 37.1 % (36.0-48.0); HEMOGLOBIN 12.7 g/dL (12-16); LYMPHOCYTES 45.4 % (15-50); MCH 30.5 pg (26.0-34.0); MCHC 34.2 g/dL (31.0-37.0); MEAN PLATELET VOLUME 11.6 fL (7.4-10.4); NEUTROPHILS 44.4 % (40-80); PLATELET COUNT 161 10x3/uL (130-400); RBC 4.17 10x6/uL (4.00-5.40); RDW 12.1 % (11.5-14.5); WBC 5.9 10x3/uL (4.8-10.8)
[2019-10-02 10:10] VITALS: BP 142/99
[2019-10-02 13:45] VITALS: BP 147/93
[2019-10-02 19:19] LABS: AMYLASE - SERUM 13 U/L (25-115); CALC OSMOLALITY 286 mosm/kg (275-300); CALCIUM 8.7 mg/dL (8.5-10.1); CARBON DIOXIDE 30.5 mmol/L (21.0-32.0); CHLORIDE - SERUM 103 mmol/L (98-107); CREATININE - SERUM 0.8 mg/dL (0.6-1.3); GLUCOSE 327 mg/dL (74-106); LIPASE 64 U/L (73-393); MAGNESIUM - SERUM 1.1 mg/dL (1.8-2.4); POTASSIUM - SERUM 3.7 mmol/L (3.5-5.1); SODIUM 138 mmol/L (136-145); UREA NITROGEN 8 mg/dL (7-18); eGFR NON AFRICAN AMERICAN 78 mL/min (90-120)
[2019-10-02 20:00] VITALS: BP 164/93
[2019-10-03] VITALS: BP 147/82
[2019-10-03 06:46] LABS: ALBUMIN 2.9 g/dL (3.4-5.0); ALKALINE PHOSPHATASE 84 U/L (30-120); ALT (SGPT) 26 U/L (10-68); CALCIUM 8.7 mg/dL (8.5-10.1); CHLORIDE - SERUM 105 mmol/L (98-107); CREATININE - SERUM 0.7 mg/dL (0.6-1.3); MAGNESIUM - SERUM 1.2 mg/dL (1.8-2.4); POTASSIUM - SERUM 3.5 mmol/L (3.5-5.1); PROTEIN - SERUM 5.5 g/dL (6.4-8.2); SODIUM 140 mmol/L (136-145); UREA NITROGEN 9 mg/dL (7-18); eGFR NON AFRICAN AMERICAN > 90 mL/min (90-120)
[2019-10-03 06:49] LABS: CALC OSMOLALITY 283 mosm/kg (275-300); GLUCOSE 204 mg/dL (74-106)
[2019-10-03 07:35] LABS: HEMATOCRIT 36.1 % (36.0-48.0); HEMOGLOBIN 12.6 g/dL (12-16); LYMPHOCYTES 49.2 % (15-50); MCH 30.7 pg (26.0-34.0); MCHC 34.9 g/dL (31.0-37.0); MEAN PLATELET VOLUME 11.7 fL (7.4-10.4); NEUTROPHILS 38.9 % (40-80); PLATELET COUNT 149 10x3/uL (130-400); RDW 12.3 % (11.5-14.5); WBC 5.6 10x3/uL (4.8-10.8)
[2019-10-03 10:04] LABS: AMYLASE - SERUM 12 U/L (25-115); LIPASE 54 U/L (73-393)
[2019-10-03 11:25] VITALS: BP 122/66
--- NOTE | 2019-10-03 13:54 | NUR ---
Nutrition Follow-up: Eating well; 100% this AM. C/o nausea without vomiting but states Zofran is helping. Diet: Diabetic Wt: 132.2# (09/30) Last BM: 09/28 Labs noted: Glu 204, Mg 1.2, Alb 2.9 Meds noted: Protonix, Humulin, Zofran, NS @ 125, electrolyte protocol -Monitor wt; noted daily wts ordered. -RD following.
[2019-10-03 14:49] VITALS: BP 166/99
[2019-10-03] MEDS ORDERED: MAG-OX 400 MG400 MG PO (15:21)
--- NOTE | 2019-10-03 15:39 | MORECARE ---
CASE MANAGEMENT DISCHARGE SUMMARY PATIENT: OCTAVIO WORLEY UNIT: [id number] ADM DATE: 09/30/19 AGE: 59 : 64 SEX: F ROOM/BED: D.2135 AUTHOR: ROXY HENRY PHYSICIAN: REFERRING PHYSICIAN: JEF WEEKS MD DATE OF SERVICE: 10/03/19 Discharge Plan Patient Name: OCTAVIO WORLEY [facility] [facility] 1960 Planned Disposition: Home Anticipated Discharge Date: Discharge Date: Expected LOS: Initial Reviewer: [email or web address] Initial Review Date: 09/30/2019 Generated: 10/03/19 4:38 pm DCPIA - Discharge Planning Initial Assessment Updated by [id number]: Whitney Reynolds on 10/03/19 3:35 pm * Is the patient Alert and Oriented? Yes * How many steps to enter\exit or inside your home? 5/0 * PCP [facility] * Pharmacy [facility] * Preadmission Environment Home with Family * ADLs Independent * Equipment None * List name and contact numbers for known caregivers / representatives who currently or will assist patient after discharge: TARA CEE DTR [phone] * Verbal permission to speak to the caregivers and representatives has been obtained from the patient. Yes * Community resources currently utilized None * Additional services required to return to the preadmission environment? No * Can the patient safely return to the preadmission environment? Yes * Has this patient been hospitalized within the prior 30 days at any hospital? No Patient Name: OCTAVIO WORLEY Page [id number] at 1539 All edits/amendments must be made on the electronic document DICTATION DATE: 10/03/19 1538 PARCEL WRAPPER: BHUPINDER 10/03/19 1538 RPT#: [id number] DC DATE: STATUS: ADM IN [facility] [address] [place] [address] END OF REPORT
[2019-10-03 17:52] LABS: CALC OSMOLALITY 280 mosm/kg (275-300); CALCIUM 8.7 mg/dL (8.5-10.1); CARBON DIOXIDE 30.8 mmol/L (21.0-32.0); CHLORIDE - SERUM 102 mmol/L (98-107); CREATININE - SERUM 0.7 mg/dL (0.6-1.3); POTASSIUM - SERUM 3.6 mmol/L (3.5-5.1); SODIUM 140 mmol/L (136-145); UREA NITROGEN 9 mg/dL (7-18); eGFR NON AFRICAN AMERICAN > 90 mL/min (90-120)
[2019-10-03 18:05] LABS: GLUCOSE 147 mg/dL (74-106); MAGNESIUM - SERUM 1.8 mg/dL (1.8-2.4)
[2019-10-03 20:00] VITALS: BP 163/97
--- NOTE | 2019-10-04 03:13 | NUR ---
I have reviewed this patient and I concur with the Shift Assessment completed by the Licensed Practical Nurse today this shift.
[2019-10-04 04:00] VITALS: BP 126/76
[2019-10-04 05:59] LABS: ALBUMIN 3.2 g/dL (3.4-5.0); ALKALINE PHOSPHATASE 91 U/L (30-120); ALT (SGPT) 29 U/L (10-68); BILIRUBIN - TOTAL 0.41 mg/dL (0.2-1.3); CALCIUM 8.8 mg/dL (8.5-10.1); CARBON DIOXIDE 29.9 mmol/L (21.0-32.0); CREATININE - SERUM 0.7 mg/dL (0.6-1.3); GLUCOSE 134 mg/dL (74-106); MAGNESIUM - SERUM 1.6 mg/dL (1.8-2.4); PROTEIN - SERUM 5.9 g/dL (6.4-8.2); UREA NITROGEN 9 mg/dL (7-18); eGFR NON AFRICAN AMERICAN > 90 mL/min (90-120)
[2019-10-04 06:19] LABS: HEMATOCRIT 38.8 % (36.0-48.0); HEMOGLOBIN 13.6 g/dL (12-16); LYMPHOCYTES 35.1 % (15-50); MCH 30.9 pg (26.0-34.0); MCHC 35.1 g/dL (31.0-37.0); MCV 88.2 fL (80.0-100.0); MEAN PLATELET VOLUME 11.2 fL (7.4-10.4); NEUTROPHILS 52.7 % (40-80); PLATELET COUNT 153 10x3/uL (130-400); RDW 12.2 % (11.5-14.5)
[2019-10-04 06:36] LABS: WBC 7.1 10x3/uL (4.8-10.8)
[2019-10-04 07:19] LABS: CALC OSMOLALITY 278 mosm/kg (275-300); POTASSIUM - SERUM 3.5 mmol/L (3.5-5.1); SODIUM 139 mmol/L (136-145)
[2019-10-04 07:20] LABS: CHLORIDE - SERUM 103 mmol/L (98-107)
[2019-10-04 08:40] VITALS: BP 145/95
--- NOTE | 2019-10-04 11:04 | NUR ---
PT'S DISCHARGE INSTRUCTIONS REVIEWED. SHE IS ASKING FOR REFILL ON HYDRO FROM HOME AND ALSO PLAVIX. WILL LET ENGINE BUILDER KNOW ABOUT REQUEST. TELEMETRY REMOVED.
[2019-10-04] MEDS ORDERED: PLAVIX75 MG PO (11:26)
--- NOTE | 2019-10-04 13:20 | NUR ---
PT IV OUT. LEAVING FOR DISCHARGE. DR SAUL'S OFFICE TO CALL IN SCRIPT FOR HYDRO.
--- NOTE | 2019-10-05 08:36 | MORECARE ---
CASE MANAGEMENT DISCHARGE SUMMARY PATIENT: OCTAVIO WORLEY UNIT: [id number] ADM DATE: 09/30/19 AGE: 59 : 64 SEX: F ROOM/BED: D.9681 AUTHOR: CARL,DOC PHYSICIAN: REFERRING PHYSICIAN: JEF WEEKS MD DATE OF SERVICE: 10/05/19 Discharge Plan Patient Name: OCTAVIO WORLEY Facility: [facility]:[place] : 1960 Planned Disposition: Home Anticipated Discharge Date: Discharge Date: 10/04/2019 Expected LOS: Initial Reviewer: [email or web address] Initial Review Date: 09/30/2019 Generated: 10/05/19 9:36 am Comments DCP- Discharge Planning Updated by [email or web address]: Whitney Reynolds on 10/03/19 2:[address] Patient Name: OCTAVIO WORLEY Admission Status: ER Accout number: [id number] Admission Date: 09-30-2019 : 1960 Admission Diagnosis:UNSPECIFIED ABDOMINAL PAIN Attending: JEF WEEKS Current LOS: 3 Anticipated DC Date: Planned Disposition: Home Primary Insurance: MEDICARE A & B Discharge Planning Comments: CM met with patient to complete initial dc planning assessment. CM educated patient on the CM role and verbal consent given by patient to complete assessment. CM verified patient's address, phone number, and emergency contact phone numbers. Patient lives at home with her daughter and grandchildren. At discharge patient plans to return home and feels this is a safe discharge. CM discussed availability of home health, rehab services, and medical equipment. Patient denied known discharge needs at this time. States her daughter is there. Transportation provider at discharge will be Giselle (DTR) [phone]. DC IMM delivered, explained, signed by the patient, and placed in chart. Signed form also left with the patient. Declination signed for home health. CM will continue to follow and will assist as needed with dc plans/needs. Flamer After Lasting: Whitney Reynolds DCPIA - Discharge Planning Initial Assessment Updated by [id number]: Whitney Reynolds on 10/03/19 3:35 pm * Is the patient Alert and Oriented? Yes * How many steps to enter\exit or inside your home? 5/0 * PCP [facility] * Pharmacy [facility] * Preadmission Environment Home with Family * ADLs Independent * Equipment None * List name and contact numbers for known caregivers / representatives who currently or will assist patient after discharge: GISELLE CEE DTR [phone] * Verbal permission to speak to the caregivers and representatives has been obtained from the patient. Yes * Community resources currently utilized None * Additional services required to return to the preadmission environment? No * Can the patient safely return to the preadmission environment? Yes * Has this patient been hospitalized within the prior 30 days at any hospital? No Coverage Notice Reviewer: [id number] Galdino Reynolds Notice Issued Date-Time: 10/03/2019 14:30 Notice Type: IM Discharge Notice Notice Delivered To: Patient Relationship to Patient: Senior Executive Assistant Name: Delivery Method: HAND - Hand Delivered Imani Days: Prior Verbal Notification: Recipient Understood Notice: Yes Recipient Signature: Yes Med Rec Note Co-signed by Attending: Coverage Notice Comment: DC IMM delivered, explained, signed by the patient, and placed in chart. Signed form also left with the patient. Reviewer: [email or web address] Galdino Reynolds Notice Issued Date-Time: 10/03/2019 14:30 Notice Type: Patient Choice Letter Notice Delivered To: Patient Relationship to Patient: Senior Executive Assistant Name: Delivery Method: HAND - Hand Delivered Imani Days: Prior Verbal Notification: Recipient Understood Notice: Yes Recipient Signature: Yes Med Rec Note Co-signed by Attending: Coverage Notice Comment: DECLINATION SIGNED FOR ANY HH Last DP export: 10/03/19 2:39 p Patient Name: OCTAVIO WORLEY Page [phone] at 0836 All edits/amendments must be made on the electronic document DICTATION DATE: 10/05/19 0836 CONTRACTOR BUYER: BHUPINDER 10/05/19 0836 RPT#: [id number] DC DATE:10/04/19 STATUS: DIS IN [facility] [address] [place] [address] END OF REPORT
== END 2019-10-04 13:20 | disposition home or self-care (01) | DRG 690 ==
LOC: D.ER 15:09 → D.M2 18:36
PROVIDERS: Family Medicine; ADMIT Family Medicine; ATTEND Family Medicine
DX: N12 Tubulo-interstitial nephritis, not specified as acute or chronic (principal); E87.1 Hypo-osmolality and hyponatremia; E11.65 Type 2 diabetes mellitus with hyperglycemia; E03.9 Hypothyroidism, unspecified; F32.9 Major depressive disorder, single episode, unspecified; I25.10 Atherosclerotic heart disease of native coronary artery without angina pectoris; J44.9 Chronic obstructive pulmonary disease, unspecified; M79.7 Fibromyalgia

== ENCOUNTER 2020-07-31 15:15 | Outpatient (CLI) | payer MEDICARE ==
[2020-04-13 17:51] VITALS: BMI 23.0
[~2020-07-31 15:15] MED LIST changes: +AMITRIPTYLINE H50 MG PO; +ATARAX 25 MG TA25 MG PO; +BACTRIM DS TAB1 EAC1 PO; +LEXAPRO10 MG PO; +LIPITOR20 MG PO; +MAG-OX 400 MG400 MG PO; +NIASPAN500 MG PO; +NORVASC2.5 MG PO; +SYNTHROID125 MCG PO; +TYLENOL W/CODEI1 TAB PO; +ZOFRAN ODT4 MG/UDTAB PO
== END 2020-07-31 23:59 | disposition home or self-care (01) ==
LOC: D.MAMMO 15:15
PROVIDERS: ATTEND Family Medicine
DX: Z12.31 Encounter for screening mammogram for malignant neoplasm of breast (principal)